=== PATIENT | female | born 1975 | race Caucasian/White ===

== ENCOUNTER 2023-03-21 11:29 | Outpatient (RCR) | payer OTHER, SELFPAY | END 2023-04-09 23:59 | disposition home or self-care (01) | LOC: SPT 11:29 | PROVIDERS: PCP Pediatrics; Visit Provider Pediatrics | DX: M72.2 Plantar fascial fibromatosis (principal) | CPT/HCPCS: 97110; 97140; 97161 ==

== ENCOUNTER 2023-04-10 06:00 | Outpatient (RCR) | payer OTHER, SELFPAY | END 2023-05-09 23:59 | disposition home or self-care (01) | LOC: SPT 06:00 | PROVIDERS: PCP Pediatrics; Visit Provider Pediatrics | DX: M72.2 Plantar fascial fibromatosis (principal) | CPT/HCPCS: 97110; 97140 ==

== ENCOUNTER 2023-09-04 14:04 | Outpatient (CLI) | payer OTHER, SELFPAY ==
[2023-09-04 14:39] LABS: Basophils % 0.3 %; Eosinophils # 0.1 10^3/uL (0.0-0.8); Eosinophils % 1.6 %; Hematocrit 40.6 % (36-47); Lymphocytes # 3.5 10^3/uL (0.8-4.8); Lymphocytes % 40.5 %; Mean Corpuscular HGB Conc 33.5 g/dL (30-55); Mean Corpuscular Hemoglobin 32.4 pg (27-33); Mean Corpuscular Volume 96.7 fl (85-98); Mean Platelet Volume 9.1 fL (7.4-10.4); Monocytes # 0.4 10^3/uL (0.2-0.9); Monocytes % 5.1 %; Neutrophils # 4.52 10^3/uL (1.8-7.7); Neutrophils % 51.9 %; Nucleated Red Blood Cells % 0 %; Platelet Count 233 10^3/cmm (157-399); Red Cell Distribution Width 12.9 % (12.1-15.1); White Blood Count 8.71 10^3/uL (3.29-11.43)
[2023-09-04 15:12] LABS: Anion Gap 13.1 (5-19); Blood Urea Nitrogen 22 mg/dL (6-20); Calcium 9.5 mg/dL (8.5-10.5); Carbon Dioxide 30 mmol/L (22-29); Chloride 100 mmol/L (98-107); Cortisol Random 2.55 ug/dL (2.47-19.5); Glomerular Filtration Rate 75.9 mL/min (90-130); Glucose 103 mg/dL (65-115); Osmolality Calculated 292 mOsm/kg (285-295); Potassium 4.1 mmol/L (3.5-5.1); Sodium 139 mmol/L (136-145); T3 Free 2.5 PG/ML (2.0-4.4); Testosterone Total 2.5 ng/dL (2.9-40.8); Thyroid Stimulating Hormone 1.64 uIU/mL (0.27-4.20)
[2023-09-04 16:47] LABS: Iron 82 ug/dL (37-145)
[2023-09-05 05:19] LABS: T3 Total 116 ng/dL (76-181)
[2023-09-05 07:15] LABS: T4 Total 8.9 mcg/dL (5.1-11.9)
[2023-09-07 20:14] LABS: Testosterone, Free 0.1 pg/mL (0.2-5.0)
== END 2023-09-04 14:05 | disposition home or self-care (01) ==
LOC: LAB 14:12
PROVIDERS: PCP Pediatrics; Visit Provider Pediatrics
DX: E06.3 Autoimmune thyroiditis (principal); E03.9 Hypothyroidism, unspecified
CPT/HCPCS: 36415; 80048; 82533; 83540; 84402; 84403; 84436; 84439; 84443; 84480; 84481; 85025

== ENCOUNTER → 2023-10-22 14:55 | Outpatient (BNVA) | payer OTHER, SELFPAY | PROVIDERS: PCP Pediatrics; Visit Provider Obstetrics & Gynecology | DX: Z01.419 Encounter for gynecological examination (general) (routine) without abnormal findings (principal) | CPT/HCPCS: 87624 ==

== ENCOUNTER 2023-10-28 12:39 | Outpatient (CLI) | payer OTHER, SELFPAY | END 2023-10-28 12:40 | disposition home or self-care (01) | LOC: RAD 12:39 | PROVIDERS: PCP Pediatrics; Visit Provider Obstetrics & Gynecology | DX: Z12.31 Encounter for screening mammogram for malignant neoplasm of breast (principal) | CPT/HCPCS: 77063; 77067 ==

== ENCOUNTER 2023-11-05 07:58 | Outpatient (CLI) | payer OTHER, SELFPAY ==
[2023-11-05 09:48] LABS: Free T4 Free Thyroxine 1.38 ng/dL (0.82-1.77); Thyroid Stimulating Hormone 0.55 uIU/mL (0.27-4.20)
[2023-11-06 10:34] LABS: T3 Total 96 ng/dL (76-181)
== END 2023-11-05 07:59 | disposition home or self-care (01) ==
PROVIDERS: PCP Pediatrics; Visit Provider Internal Medicine
DX: E03.8 Other specified hypothyroidism (principal); E06.3 Autoimmune thyroiditis
CPT/HCPCS: 36415; 84439; 84443; 84480

== ENCOUNTER 2024-01-27 07:48 | Outpatient (CLI) | payer OTHER, SELFPAY ==
[2024-01-27 09:06] LABS: Cortisol Random 8.83 ug/dL (2.47-19.5)
[2024-01-27 09:08] LABS: Free T4 Free Thyroxine 1.15 ng/dL (0.82-1.77); Thyroid Stimulating Hormone 0.54 uIU/mL (0.27-4.20)
[2024-01-28 12:10] LABS: T3 Total 96 ng/dL (76-181)
== END 2024-01-27 07:49 | disposition home or self-care (01) ==
LOC: LAB 07:49
PROVIDERS: PCP Pediatrics; Visit Provider Internal Medicine
DX: E03.8 Other specified hypothyroidism (principal); E06.3 Autoimmune thyroiditis
CPT/HCPCS: 36415; 82533; 84439; 84443; 84480

== ENCOUNTER 2024-02-24 09:01 | Inpatient (IN) | payer OTHER, SELFPAY ==
[2024-02-24 09:14] VITALS: BP 132/79; PULSE 90; TEMP 36.6; O2SAT 97; BMI 31.5
[2024-02-24 09:19] LABS: Basophils % 0.7 %; Eosinophils # 0.3 10^3/uL (0.0-0.8); Eosinophils % 4.9 %; Hematocrit 40.7 % (36-47); Lymphocytes # 2.2 10^3/uL (0.8-4.8); Lymphocytes % 35.9 %; Mean Corpuscular HGB Conc 34.2 g/dL (30-55); Mean Corpuscular Hemoglobin 31.2 pg (27-33); Mean Corpuscular Volume 91.5 fl (85-98); Mean Platelet Volume 9.2 fL (7.4-10.4); Monocytes # 0.4 10^3/uL (0.2-0.9); Neutrophils # 3.13 10^3/uL (1.8-7.7); Neutrophils % 51.3 %; Nucleated Red Blood Cells % 0 %; Platelet Count 243 10^3/cmm (157-399); Red Blood Count 4.45 10^6/uL (3.85-5.65); Red Cell Distribution Width 12.2 % (12.1-15.1)
--- NOTE | 2024-02-24 09:22 | ED.C_ITS ---
HPI - Psych 2 General: Chief Complaint: Psychiatric Symptoms Stated Complaint: SI--MHE Time Seen by Provider: 02/24/24 09:04 Source: patient Mode of arrival: ambulatory Limitations: no limitations History of Present Illness: Patient is a 48-year-old female who presents to ED today with a complaint of worsening depression and suicidal ideations. Patient states she struggled with depression pretty much her whole life. She states normally she can keep the depression at bay with medications and counseling/therapy. She states she receives the services of [place], [place] as she used to live there. She states her therapist recently has been very busy and it has been hard to get into see them. Patient states she will have occasional thoughts of running her car off of the road. She states currently she just wants to feel numb . She feels like she is struggling in her marriage and receives marriage counseling for this. MD complaint: suicidal ideation and feels depressed Onset (ago): week(s) Duration: constant and getting worse History of same: Yes Relieving factors: none Exacerbating factors: none Context: significant life stressor Associated psychiatric symptoms: depression and suicidal ideation Associated symptoms: Reports depression and suicidal ideation; Deny auditory hallucinations, visual hallucinations or homicidal ideation If self harm: admits thoughts of self harm Related Data Home Medications Medication Instructions Recorded Confirmed omeprazole 20 mg tablet,delayed 20 mg PO DAILY 10/22/23 02/04/24 release lorazepam 0.5 mg tablet 0.5 mg PO TID PRN 11/01/23 02/04/24 bupropion HCl 200 mg tablet,12 hr 200 mg PO 02/04/24 02/04/24 sustained-release venlafaxine 150 mg 150 mg PO 02/04/24 02/04/24 capsule,extended release 24 hr venlafaxine 225 mg tablet,extended 150 mg PO DAILY 02/04/24 02/04/24 release 24 hr Previous Rx's Medication Instructions Recorded levothyroxine 75 mcg tablet 75 mcg PO .Saturday-Saturday #90 tabs 02/04/24 liothyronine 5 mcg tablet 10 mcg (2 x 5 mcg) PO DAILY #180 02/04/24 tabs Allergies Allergy/AdvReac Type Severity Reaction Status Date / Time erythromycin base Allergy Unknown Verified 02/24/24 09:20 Review of Systems 2 Const: Denies: fever(s) or chills Card: Denies: chest pain, palpitations, lightheadedness or syncope Resp: Denies: dyspnea GI: Denies: abdominal pain, nausea, vomiting or diarrhea Skin/Breast: Denies: rash Neuro: Denies: headache(s) Psych: Reports: anxiety, depression, hopelessness and suicidal ideation; Denies: paranoia, visual hallucinations, auditory hallucinations or homicidal ideation PFSH ED 2 PFSH: Medical History Primary adrenal deficiency Family History Father Heart disease Hypercholesteremia Hypertension Mother Heart disease Hypercholesteremia Hypertension Stroke Grandfather Heart disease Denies family history of Colon cancer Ovarian cancer Prostate cancer Diabetes Breast cancer Uterine cancer Thyroid disease Social History Smoking and tobacco/nicotine status: never used tobacco/nicotine Physical Exam 2 Const: COMMON NORMALS: no acute distress, patient oriented x3, alert and well nourished GENERAL APPEARANCE: cooperative and well kempt Resp: COMMON NORMALS: normal respiratory effort and clear to auscultation bilaterally AUSCULTATION: clear to auscultation bilaterally Cardio: COMMON NORMALS: regular rate and regular rhythm RATE: regular rate RHYTHM: regular rhythm Neuro: COMMON NORMALS: patient oriented x3 SENSORIUM/ORIENTATION: Yes alert Psych: COMMON NORMALS: mental status grossly normal, Normal thought process present, cooperative, normal affect, speech normal, activity/motor behavior normal and denies hallucinations APPEARANCE: Yes grossly normal and Yes well kempt ATTITUDE: Yes calm ACTIVITY/MOTOR BEHAVIOR: Yes appropriate eye contact and No psychomotor agitation SPEECH: Yes normal speech MOOD & AFFECT: Yes sad and Yes tearful THOUGHT PROCESS: Normal thought process present ATTENTION/CONCENTRATION: Yes attention grossly intact and Yes concentration grossly intact MEMORY/COGNITION: Yes memory grossly intact and Yes cognition grossly intact INSIGHT: Good insight present (Psych) J UDGEMENT: Good judgement present (Psych) Course 2 Consultations: Consultation #1: Dr. Sanders-accepts admission to NPU Vital Signs: Vital signs: Vital Signs Temperature 98 F 02/24/24 09:14 Pulse Rate 90 02/24/24 09:14 Blood Pressure 132/79 02/24/24 09:14 Pulse Oximetry 97 09/16/24 09:14 Oxygen Delivery Me thod Room Air 02/24/24 09:14 MDM - Psych Medical Decision Making Patient will be an admit to NPU to Dr. Sanders for treatment of her worsening depression and suidical ideations. She is voluntary at this time. Differential Diagnosis Likely suicidal ideation and depression Medical Records I reviewed the patient's medical records. Lab Data I reviewed the patient's lab results. 02/24/24 09:13 02/24/24 09:13 Laboratory Results WBC 6.10 10^3/uL (3.29-11.43) 02/24/24 09:13 RBC 4.45 10^6/uL (3.85-5.65) 02/24/24 09:13 Hgb 13.90 g/dL (11.27-16.99) 02/24/24 09:13 Hct 40.7 % (36-47) 02/24/24 09:13 MCV 91.5 fl (85-98) 02/24/24 09:13 MCH 31.2 pg (27-33) 02/24/24 09:13 MCHC 34.2 g/dL (30-55) 02/24/24 09:13 RDW 12.2 % (12.1-15.1) 02/24/24 09:13 Plt Count 243 10^3/cmm (157-399) 02/24/24 09:13 MPV 9.2 fL (7.4-10.4) 02/24/24 09:13 Neut % (Auto) 51.3 % 02/24/24 09:13 Lymph % (Auto) 35.9 % 02/24/24 09:13 [place] % (Auto) 7.0 % 02/24/24 09:13 Eos % (Auto) 4.9 % 02/24/24 09:13 Baso % (Auto) 0.7 % 02/24/24 09:13 Neut # (Auto) 3.13 10^3/uL (1.8-7.7) 02/24/24 09:13 Lymph # (Auto) 2.2 10^3/uL (0.8-4.8) 02/24/24 09:13 [place] # (Auto) 0.4 10^3/uL (0.2-0.9) 02/24/24 09:13 Eos # (Auto) 0.3 10^3/uL (0.0-0.8) 02/24/24 09:13 Baso # (Auto) 0.0 10^3/uL (0.0-0.1) 02/24/24 09:13 Nucleated RBC % (auto) 0 % 02/24/24 09:13 Nucleated RBCs # 0.0 /100WBC 02/24/24 09:13 Sodium 138 mmol/L (136-145) 02/24/24 09:13 Potassium 4.1 mmol/L (3.5-5.1) 02/24/24 09:13 Chloride 103 mmol/L (98-107) 02/24/24 09:13 Carbon Dioxide 25 mmol/L (22-29) 02/24/24 09:13 Anion Gap 14.1 (5-19) 02/24/24 09:13 BUN 13 mg/dL (6-20) 02/24/24 09:13 Creatinine 0.9 mg/dL (0.5-0.9) 02/24/24 09:13 GFR Calculation 66.3 mL/min (90-130) L 02/24/24 09:13 Glucose 103 mg/dL (65-115) 02/24/24 09:13 Calculated Osmolality 286 mOsm/kg (285-295) 02/24/24 09:13 Calcium 9.4 mg/dL (8.5-10.5) 02/24/24 09:13 Total Bilirubin 0.3 mg/dL (0.15-1.2) 02/24/24 09:13 AST 18 U/L (0-32) 02/24/24 09:13 ALT 17 U/L (0-33) 02/24/24 09:13 Alkaline Phosphatase 89 U/L (35-105) 02/24/24 09:13 Total Protein 7.4 g/dL (6.6-8.7) 02/24/24 09:13 Albumin 4.5 g/dL (3.5-5.2) 02/24/24 09:13 Globulin 2.9 g/dL (1.3-4.6) 02/24/24 09:13 Salicylates < 0.3 mg/dL (3-10) L 02/24/24 09:13 Acetaminophen < 5.0 ug/mL (10-30) L 02/24/24 09:13 Ethyl Alcohol < 10 mg/dL (0-10) 02/24/24 09:13 No radiology studies performed this visit Discharge Plan Discharge Patient Disposition: Admitted As Inpatient Clinical Impression: Suicidal ideation Depression Qualifiers: Depression Type: major depressive disorder Major depression recurrence: r ecurrent Active/Remission status: currently active Major depression episode severity: severe Psychotic features: without psychotic features Qualified Code(s): F33.2 - Major depressive disorder, recurrent severe without psychotic features Condition: Stable 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
[2024-02-24 09:36] LABS: Alanine Aminotransferase 17 U/L (0-33); Albumin Level 4.5 g/dL (3.5-5.2); Alkaline Phosphatase 89 U/L (35-105); Anion Gap 14.1 (5-19); Aspartate Amino Transferase 18 U/L (0-32); Blood Urea Nitrogen 13 mg/dL (6-20); Calcium 9.4 mg/dL (8.5-10.5); Carbon Dioxide 25 mmol/L (22-29); Chloride 103 mmol/L (98-107); Creatinine Clr Calc Pharmacy 95.6439; Globulin 2.9 g/dL (1.3-4.6); Glomerular Filtration Rate 66.3 mL/min (90-130); Glucose 103 mg/dL (65-115); Osmolality Calculated 286 mOsm/kg (285-295); Potassium 4.1 mmol/L (3.5-5.1); Sodium 138 mmol/L (136-145); Total Bilirubin 0.3 mg/dL (0.15-1.2); Total Protein 7.4 g/dL (6.6-8.7)
[2024-02-24 09:39] LABS: Acetaminophen < 5.0 ug/mL (10-30); Alcohol Level < 10 mg/dL (0-10); Salicylate < 0.3 mg/dL (3-10)
[2024-02-24 10:34] LABS: Amphetamines Screen Urine Negative (Negative); Barbiturates Screen Urine Negative (Negative); Benzodiazepines Screen Urine Positive (Negative); Cocaine Screen Urine Negative (Negative); Opiate Screen Urine Negative (Negative); PCP Screen Urine Negative (Negative); THC Screen Urine Negative (Negative)
[2024-02-24 10:50] VITALS: RESP 17; O2SAT 98
[2024-02-24 14:13] VITALS: BP 141/85; PULSE 69; RESP 18; TEMP 36.5; O2SAT 96
[2024-02-24 14:16] VITALS: BP 141/73; PULSE 86; O2SAT 98
--- NOTE | 2024-02-24 16:15 | PC.NURSE ---
ADMIT NOTE PT ARRIVED AT THE EMERGENCY DEPARTMENT WITH COMPLAINTS OF WORSENING DEPRESSION AND SI. PT WAS REPORTED TO HAS STATED TO THE ER NURSE THAT SHE WOULD TAKE ALL HER MEDICATIONS AND ANYTHING OVER THE COUNTER ON TOP OF ALCOHOL TO GO. AFFIDAVIT STATES THAT PT STATED THAT SHE WANTED TO COMMIT SUICIDE VIA MOTOR VEHICLE. UPON ADMIT TO THE NPU PT WAS TEARFUL AND WAS IMMEDIATELY REQUESTING TO LEAVE. THIS NURSE SPOKE WITH PT ABOUT THE AFFIDAVIT AND HOW HER STATING THAT SHE WAS GOING TO KILL HERSELF MEANS WE HAVE A DUTY TO ENSURE HER SAFETY. PT UNDERSTOOD AND BECAME COOPERATIVE WITH ADMIT. PT WAS ADAMANT THAT SHE IS NOT SUICIDAL AND THAT SHE NEVER MADE SAID STATEMENTS THOUGH. PT CURRENT NEEDS ARE MET AT THIS TIME.
[2024-02-24] MEDS: venlafaxine ER (24HR) 150 mg Capsule PO (17:26)
[2024-02-24 19:54] VITALS: BP 109/47; PULSE 77; RESP 18; TEMP 36.7; O2SAT 97
[2024-02-24] MEDS: cyclobenzaprine 10 mg Tablet PO (21:34)
[2024-02-25 06:00] VITALS: BP 101/71; PULSE 88; RESP 16; TEMP 36.7; O2SAT 99
[2024-02-25] MEDS: levothyroxine 75 mcg Tablet PO (06:03)
[2024-02-25] MEDS: buPROPion XL (24 HR) 300 mg Tablet PO (09:49)
[2024-02-25] MEDS: venlafaxine ER (24HR) 150 mg Capsule PO (09:49)
--- NOTE | 2024-02-25 11:40 | P.NPUHP_ITS ---
Providers/Chief Complaint 2 Admitting Physician: Blaine Sanders MD Primary Care Provider: Jeramy Mai MD Chief Complaint: SI--MHE HPI NPU History of Present Illness Charlene Sal is a 48 year old female who presented to the emergency department with the following report: Chief Complaint: Psychiatric Symptoms Stated Complaint: SI--MHE Time Seen by Provider: 02/24/24 09:04 Source: patient Mode of arrival: ambulatory Limitations: no limitations History of Present Illness: Patient is a 48-year-old female who presents to ED today with a complaint of worsening depression and suicidal ideations. Patient states she struggled with depression pretty much her whole life. She states normally she can keep the depression at bay with medications and counseling/therapy. She states she receives the services of [place], [place] as she used to live there. She states her therapist recently has been very busy and it has been hard to get into see them. Patient states she will have occasional thoughts of running her car off of the road. She states currently she just wants to feel numb . She feels like she is struggling in her marriage and receives marriage counseling for this. MD complaint: suicidal ideation and feels depressed Onset (ago): week(s) Duration: constant and getting worse History of same: Yes Relieving factors: none Exacerbating factors: none Context: significant life stressor Associated psychiatric symptoms: depression and suicidal ideation Associated symptoms: Reports depression and suicidal ideation; Deny auditory hallucinations, visual hallucinations or homicidal ideation If self harm: admits thoughts of self harm. She was admitted to the neuropsychiatric unit for definitive treatment of those issues. She is known to outpatient services through a couple of the distant contacts with [facility] some 17 years ago. She is not known to the inpatient psychiatric services here or anywhere else. She presented today reporting: Chief complaint Patient continues to struggle with depressive episodes, triggered by various life events and situations. History of the present complaint The patient has been on Effexor (150mg) and Wellbutrin (recently increased to 300mg) since the end of October 2023 for mental health reasons. She reported a depressive episode that led to a hospital visit, triggered by a movie that reminded her of an event that did not happen in her life. She also expressed feelings of judgment due to her unemployment and mental health issues, and struggles with self-trust and expressing her voice. The patient has been experiencing nightmares, anxiety, and physical manifestations of anxiety such as stomach cramps and eczema since childhood. She has been struggling with sleep, often waking up in the middle of the night and taking naps during the day. Her appetite decreases when she is depressed. She has had episodes of suicidal ideation but has never attempted suicide or self- harmed. In the past, the patient has been on Prozac, Lexapro, and Cymbalta. She reported experiencing hot flashes at night since starting Wellbutrin. She also mentioned having depression with each of her children. The patient has been in counseling for much of her adult life, with the most impactful sessions starting six years ago. These sessions involved addressing childhood trauma and dealing with codependency with her . She reported trust issues in her marriage and slow progress towards a shared direction. The patient has been unemployed since her job ended around the time of the COVID-19 pandemic. She mentioned feeling triggered and paranoid at her previous job. 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 The patient has been for 27 years and has four children. She reported having a marli marriage due to trust issues and anger, but these have subsided recently. She also mentioned having a hard time with finances since she is not currently working. Mental health history The patient has a history of depression and anxiety, and has been on various medications including Effexor, Wellbutrin, Prozac, Lexapro, and Cymbalta. She has been seeing a psychiatrist since October. She has had thoughts of not wanting to wake up, but has never attempted suicide. She has no history of self-injurious behavior or hallucinations, but has had nightmares unrelated to her personal experiences. Social history The patient does not smoke and has a minimal alcohol intake. She has a history of alcohol use in her youth but has not had a problem with it for 10-15 years. She has never used cannabis or had any drug-related charges. She is and has four children. She is currently not working due to a combination of mental health issues and a difficult work environment. 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 [facility] NPU Home Medications Medication Instructions Recorded Confirmed Last Taken Type omeprazole 20 mg tablet,delayed 20 mg PO DAILY 10/22/23 02/04/24 Unknown History release lorazepam 0.5 mg tablet 0.5 mg PO TID PRN 11/01/23 02/04/24 Unknown History bupropion HCl 200 mg tablet,12 hr 200 mg PO 02/04/24 02/04/24 Unknown History sustained-release levothyroxine 75 mcg tablet 75 mcg PO .Saturday-Saturday #90 tabs 02/04/24 02/04/24 Unknown Rx liothyronine 5 mcg tablet 10 mcg (2 x 5 mcg) PO DAILY #180 02/04/24 02/04/24 Unknown Rx tabs venlafaxine 150 mg 150 mg PO 02/04/24 02/04/24 Unknown History capsule,extended release 24 hr venlafaxine 225 mg tablet,extended 150 mg PO DAILY 02/04/24 02/04/24 Unknown History release 24 hr bupropion HCl 300 mg 24 hr tablet, 300 mg PO DAILY 02/24/24 02/24/24 Unknown History extended release cyclobenzaprine 10 mg tablet 10 mg PO TID 02/24/24 02/24/24 Unknown History levothyroxine 75 mcg tablet 75 mcg PO 0600 02/24/24 02/24/24 02/24/24 06:00 History venlafaxine 150 mg 150 mg PO DAILY 02/24/24 02/24/24 Unknown History capsule,extended release 24 hr Allergies Allergy/AdvReac Type Severity Reaction Status Date / Time erythromycin base Allergy Unknown Verified 02/24/24 09:20 PFSH NPU 2 PFSH: Medical History Primary adrenal deficiency Family History Father Heart disease Hypercholesteremia Hypertension Mother Heart disease Hypercholesteremia Hypertension Stroke Grandfather Heart disease Denies family history of Colon cancer Ovarian cancer Prostate cancer Diabetes Breast cancer Uterine cancer Thyroid disease Social History Smoking and tobacco/nicotine status: never used tobacco/nicotine Mental Status Exam 2 MSE Comments: This is an obese white female in hospital scrubs on with appropriate grooming and eye contact.? No abnormal movements except for mild psychomotor retardation.? Cooperative with exam in mild distress.? Speech was decreased rate and volume. Mood described as a little better than yesterday, affect slightly subdued. Thought process organized, thought content: Patient denied suicidal or homicidal ideation, there were no delusions reported or noted, she denied auditory or visual hallucinations. The patient reported feeling judged for not working and for having mental health issues. She has struggled with feelings of worthlessness and has difficulty asserting herself. She has a history of anxiety, with physical manifestations such as stomach cramps and eczema. She has had periods of insomnia and decreased appetite during depressive episodes. Attention and concentration were intact and memory appeared reliable, but none were formally tested.? She is alert and oriented x 3.? Insight and judgment are mostly fair and impulse control is limited. 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 The patient continues to struggle with depressive episodes and anxiety. She is currently on medication and has been seeing a psychiatrist. She has been experiencing depressive episodes and has had thoughts of not wanting to wake up, but has never attempted suicide. She has a history of alcohol use in her youth but has not had a problem with it for 10-15 years. She is currently not working due to a combination of mental health issues and a difficult work environment. 1.? Continue current medication. Recommend decrease in Effexor XR to 112.5 mg daily. 2.? Continue every 15 minute checks for safety. 3.? Encourage individual, group and milieu therapies. 4.? Get collateral information. 5. Evaluate safety against the backdrop of the affidavit in the chart. Consider discharge tomorrow. Involuntary Hold Information 2 96 Hour Hold: 96 Hour Involuntary Admission: No Attestations NPU 2 Medical Necessity Statement*: Inpatient hospitalization is medically necessary and the clinically appropriate intervention at this time. We will monitor medication to make changes as indicated. Patient will be in the hospital for over two midnights. Likely length of stay 1-3 days. 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
[2024-02-25 14:00] VITALS: BP 114/56; PULSE 70; RESP 16; TEMP 36.7; O2SAT 99
--- NOTE | 2024-02-25 16:45 | PC.NURSE ---
patient states she no longer takes flexeril
[2024-02-25 20:05] VITALS: BP 140/76; PULSE 98; RESP 18; TEMP 36.4; O2SAT 97
[2024-02-25] MEDS: pantoprazole DR 40 mg Tablet PO (21:25)
[2024-02-26 06:00] VITALS: BP 114/68; PULSE 77; RESP 18; TEMP 36.6; O2SAT 98
[2024-02-26] MEDS: levothyroxine 75 mcg Tablet PO (06:44)
[2024-02-26] MEDS: acetaminophen 325 mg Tablet 650 MG PO (06:44)
[2024-02-26] MEDS: venlafaxine ER (24HR) 150 mg Capsule PO (09:37)
[2024-02-26] MEDS: buPROPion XL (24 HR) 300 mg Tablet PO (09:37)
[2024-02-26] MEDS: pantoprazole DR 40 mg Tablet PO (09:37)
--- NOTE | 2024-02-26 11:32 | W.PM.NPUDCS ---
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 No abnormal movements except for mild psychomotor retardation.? Cooperative with exam in mild distress.? Speech was decreased rate and volume. Mood described as a little better than yesterday, affect slightly subdued. Thought process organized, thought content: Patient denied suicidal or homicidal ideation, there were no delusions reported or noted, she denied auditory or visual hallucinations. The patient reported feeling judged for not working and for having mental health issues. She has struggled with feelings of worthlessness and has difficulty asserting herself. She has a history of anxiety, with physical manifestations such as stomach cramps and eczema. She has had periods of insomnia and decreased appetite during depressive episodes. Attention and concentration were intact and memory appeared reliable, but none were formally tested.? She is alert and oriented x 3.? Insight and judgment are mostly fair and impulse control is limited. Discharge Data Studies Completed and Pending: Laboratory Results WBC 6.10 10^3/uL (3.2 9-11.43) 02/24/24 09:13 RBC 4.45 10^6/uL (3.8 5-5.65) 02/24/24 09:13 Hgb 13.90 g/dL (11.27 -16.99) 02/24/24 09:13 Hct 40.7 % (36-47) 02/24/24 09:13 MCV 91.5 fl (85-98) 02/24/24 09:13 MCH 31.2 pg (27-33) 02/24/24 09:13 MCHC 34.2 g/dL (30-55) 02/24/24 09:13 RDW 12.2 % (12.1-15.1 ) 02/24/24 09:13 Plt Count 243 10^3/cmm (157 -399) 02/24/24 09:13 MPV 9.2 fL (7.4-10.4) 02/24/24 09:13 Neut % (Auto) 51.3 % 02/24/24 09:13 Lymph % (Auto) 35.9 % 02/24/24 09:13 [place] % (Auto) 7.0 % 02/24/24 09:13 Eos % (Auto) 4.9 % 02/24/24 09:13 Baso % (Auto) 0.7 % 02/24/24 09:13 Neut # (Auto) 3.13 10^3/uL (1.8 -7.7) 02/24/24 09:13 Lymph # (Auto) 2.2 10^3/uL (0.8- 4.8) 02/24/24 09:13 [place] # (Auto) 0.4 10^3/uL (0.2- 0.9) 02/24/24 09:13 Eos # (Auto) 0.3 10^3/uL (0.0- 0.8) 02/24/24 09:13 Baso # (Auto) 0.0 10^3/uL (0.0- 0.1) 02/24/24 09:13 Nucleated RBC % (a uto) 0 % 02/24/24 09:13 Nucleated RBCs # 0.0 /100WBC 02/24/24 09:13 Sodium 138 mmol/L (136-1 45) 02/24/24 09:13 Potassium 4.1 mmol/L (3.5-5 .1) 02/24/24 09:13 Chloride 103 mmol/L (98-10 7) 02/24/24 09:13 Carbon Dioxide 25 mmol/L (22-29) 02/24/24 09:13 Anion Gap 14.1 (5-19) 02/24/24 09:13 BUN 13 mg/dL (6-20) 02/24/24 09:13 Creatinine 0.9 mg/dL (0.5-0. 9) 02/24/24 09:13 GFR Calculation 66.3 mL/min (90-1 30) L 02/24/24 09:13 Glucose 103 mg/dL (65-115 ) 02/24/24 09:13 Calculated Osmolal ity 286 mOsm/kg (285- 295) 02/24/24 09:13 Calcium 9.4 mg/dL (8.5-10 .5) 02/24/24 09:13 Total Bilirubin 0.3 mg/dL (0.15-1 .2) 02/24/24 09:13 AST 18 U/L (0-32) 02/24/24 09:13 ALT 17 U/L (0-33) 02/24/24 09:13 Alkaline Phosphata se 89 U/L (35-105) 02/24/24 09:13 Total Protein 7.4 g/dL (6.6-8.7 ) 02/24/24 09:13 Albumin 4.5 g/dL (3.5-5.2 ) 02/24/24 09:13 Globulin 2.9 g/dL (1.3-4.6 ) 02/24/24 09:13 Salicylates < 0.3 mg/dL (3-10 ) L 02/24/24 09:13 Urine Opiates Scre en Negative ng/mL (N egative) 02/24/24 09:33 Acetaminophen < 5.0 ug/mL (10-3 0) L 02/24/24 09:13 Ur Barbiturates Sc reen Negative ng/mL (N egative) 02/24/24 09:33 Ur Phencyclidine S crn Negative ng/mL (N egative) 02/24/24 09:33 Ur Amphetamines Sc reen Negative ng/mL (N egative) 02/24/24 09:33 U Benzodiazepines Scrn Positive ng/mL (N egative) H 02/24/24 09:33 Urine Cocaine Scre en Negative ng/mL (N egative) 02/24/24 09:33 U Marijuana (THC) Screen Negative ng/mL (N egative) 02/24/24 09:33 Ethyl Alcohol < 10 mg/dL (0-10) 02/24/24 09:13 Vitals: Last Vital Signs Temp 97.8 F 02/26/24 06:00 Pulse 77 02/26/24 06:00 Resp 18 02/26/24 06:00 BP 114/68 02/26/24 06:00 Pulse Ox 98 02/26/24 06:00 O2 Del Method Room Air 02/26/24 06:00 Discharge Plan Discharge Patient Disposition: Home Condition: Stable Prescriptions: Continued omeprazole 20 mg tablet,delayed release (DR/EC) 20 mg PO DAILY lorazepam 0.5 mg tablet 0.5 mg PO TID PRN liothyronine 5 mcg tablet 10 mcg PO DAILY Qty: 180 1RF venlafaxine 150 mg capsule,extended release 24hr 150 mg PO DAILY levothyroxine 75 mcg tablet 75 mcg PO 0600 bupropion HCl 300 mg tablet extended release 24 hr 300 mg PO DAILY 30 Days Qty: 30 1RF cyclobenzaprine 10 mg tablet 10 mg PO TID 30 Days Qty: 90 1RF Discontinued venlafaxine 225 mg tablet extended release 24hr 150 mg PO DAILY venlafaxine 150 mg capsule,extended release 24hr 150 mg PO bupropion HCl 200 mg tablet sustained-release 12 hr 200 mg PO levothyroxine 75 mcg tablet 75 mcg PO .Saturday-Saturday Qty: 90 1RF Rx Instructions: Take one tab Saturday-Saturday Discharge Orders: Discharge Order (Routine); Ordered 02/26/24 Ordered By: Blaine Sanders Referrals: [facility] [Outside] - 02/28/24 8:30 am (Initial assessment for services with Charlene.) Jeramy Mai MD [Primary Care Provider] - Discharge Diet: Regular Discharge Activity: Resume usual activity Patient Instructions: Opioid Safety, Pain Management Discharge Attestations NPU Time Spent in Discharge Care*: less than 30 min Specific Discharge Activities: Specific discharge activities: educating patient, discussing with employment evaluator/case manager/social workers/dc planners, documenting/other paperwork and evaluating patient/reviewing data Coding Level of Care Code Acute Code for Chg Fwd Diagnoses Suicidal ideation R45.851 Major depressive disorder, recurrent severe without psychotic features F33.2 SABINA (generalized anxiety disorder) F41.1 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
[2024-02-26 11:48] VITALS: BP 114/68; PULSE 77; RESP 18; TEMP 36.6; O2SAT 98
== END 2024-02-26 12:40 | disposition home or self-care (01) | DRG 885 ==
LOC: ER 10:08 → NP 13:05
PROVIDERS: Admitting Provider Psychiatry & Neurology Psychiatry; Emergency Provider Physician Assistant; PCP Pediatrics; Visit Provider Psychiatry & Neurology Psychiatry
DX: F33.2 Major depressive disorder, recurrent severe without psychotic features (principal); R45.851 Suicidal ideations; F41.1 Generalized anxiety disorder; E06.3 Autoimmune thyroiditis; E66.9 Obesity, unspecified; Z68.31 Body mass index [BMI] 31.0-31.9, adult
CPT/HCPCS: 36415; 80053; 80306; 80307; 85025; 97150; 97165; 99285

== ENCOUNTER 2024-04-20 10:25 | Outpatient (CLI) | payer OTHER, SELFPAY | END 2024-04-20 10:26 | disposition home or self-care (01) | LOC: SLEEP 10:26 | PROVIDERS: PCP Pediatrics; Visit Provider Internal Medicine | DX: G47.33 Obstructive sleep apnea (adult) (pediatric) (principal) | CPT/HCPCS: G0399 ==

== ENCOUNTER → 2024-05-01 13:45 | Outpatient (BNVA) | payer OTHER, SELFPAY | PROVIDERS: PCP Pediatrics; Visit Provider Internal Medicine | DX: E03.8 Other specified hypothyroidism (principal); E06.3 Autoimmune thyroiditis; R53.83 Other fatigue | CPT/HCPCS: 36415; 82565; 85025; 85651; 86140; 86200; 86431; 86705; 86706; 86709; 86803; 87340 ==

== ENCOUNTER 2024-10-28 09:52 | Outpatient (CLI) | payer OTHER, SELFPAY ==
--- NOTE | 2024-10-28 | MM_ITS ---
WS: [id number] BILATERAL SCREENING DIGITAL TOMOSYNTHESIS MAMMOGRAM WITH CAD HISTORY: ANNUAL SCREENING COMPARISON: 10/28/2023, 04/12/2022 Bilateral CC and MLO views with tomosynthesis and synthetic mammography submitted. Computer aided detection analyzed. Breast composition: There are scattered areas of fibroglandular density. No suspicious masses, microcalcifications or architectural distortion. Benign calcification upper outer quadrant LEFT breast. MM/MM scr BI tomosynthesis [id number] IMPRESSION: BI-RADS: 2 - Benign. FOLLOW UP: 1 Year Follow-up
== END 2024-10-28 09:53 | disposition home or self-care (01) ==
PROVIDERS: PCP Family Medicine; Visit Provider Family Medicine
DX: Z12.31 Encounter for screening mammogram for malignant neoplasm of breast (principal); R92.323 Mammographic fibroglandular density, bilateral breasts; R92.1 Mammographic calcification found on diagnostic imaging of breast
CPT/HCPCS: 77063; 77067

== ENCOUNTER 2024-11-25 20:00 | Outpatient (CLI) | payer OTHER, SELFPAY | END 2024-11-25 20:01 | disposition home or self-care (01) | LOC: SLEEP 23:50 | PROVIDERS: PCP Family Medicine; Visit Provider Internal Medicine Pulmonary Disease | DX: G47.33 Obstructive sleep apnea (adult) (pediatric) (principal) | CPT/HCPCS: 95811 ==